=== PATIENT | male | born 1990 | race Caucasian/White ===

== ENCOUNTER 2023-05-28 07:42 | Emergency (ER) | payer SELFPAY ==
[~2023-05-28] VITALS: Ht 180.3 cm; Wt 97.5 kg
[2023-05-28 07:48] VITALS: BP 134/85; PULSE 129; TEMP 98.8; O2SAT 98
[2023-05-28] MEDS ORDERED: HALOPERIDOL IM 5 MG/ML VIAL IM ONE (08:40)
[2023-05-28] MEDS ORDERED: diphenhydrAMINE 50 MG/ML VIAL IM ONE (08:50)
[2023-05-28] MEDS ORDERED: LORazepam 2 MG/ML VIAL IM ONE (08:50)
== END 2023-05-28 09:00 | disposition home or self-care (01) ==
LOC: MED 07:42
DX: R46.1 Bizarre personal appearance (principal)
CPT/HCPCS: 99283